=== PATIENT | male | born 1935 | race Caucasian/White ===

== ENCOUNTER 2019-11-08 18:01 | Inpatient (IN) | payer MEDICARE, OTHER ==
[~2019-11-08] VITALS: Ht 175.3 cm; Wt 86.2 kg
--- NOTE | 2019-11-08 18:10 | NUR ---
[id number], from home, generalized weakness x 5 days, no appetite to eat. Patient a/ox2-3, breathing even and unlabored, no sob noted, needs attended, kept comfortable, changed into gown, attached to the security monitor.
--- NOTE | 2019-11-08 18:38 | NUR ---
per patient, he lives alone, he has a sheet metal duct installer apprentice that comes 3x a week.
[2019-11-08 18:54] LABS: BASOPHILS % (AUTO) 0.4 % (0.0-2.0); HEMATOCRIT 44 % (39-51); HEMOGLOBIN 14.7 g/dL (13.5-17.5); LYMPHOCYTES # (AUTO) 0.5 /CMM (0.8-4.8); LYMPHOCYTES % (AUTO) 7.3 % (20.0-44.0); MEAN CORPUSCULAR HGB CONC 34 g/dl (31.0-36.0); MEAN CORPUSCULAR VOLUME 111 fL (80-96); MONOCYTES # (AUTO) 0.3 /CMM (0.1-1.30); MONOCYTES % (AUTO) 4.5 % (2.0-12.0); NEUTROPHILS # (AUTO) 5.6 /CMM (1.8-8.9); NEUTROPHILS % (AUTO) 87.8 % (43.0-81.0); PLATELET COUNT (AUTO) 180 /CMM (150-450); RED BLOOD CELL COUNT(AUTO) 3.97 MIL/uL (4.5-6.0); WHITE BLOOD COUNT (AUTO) 6.3 K/uL (4.3-11.0)
[2019-11-08] MEDS ORDERED: IV NS 0.9% 500 ML IV ONE (19:00)
--- NOTE | 2019-11-08 19:00 | NUR ---
unable to provide urine at this time, urinal given at bedside.
--- NOTE | 2019-11-08 19:05 | NUR ---
Boaz lee at bedside for cxr. Endorsed to Arslan CRAMER for arnulfo.
--- NOTE | 2019-11-08 19:20 | NUR ---
PT AAOX3, AMBULATORY WITH THE USE OF A WALKER. PLACED ON VISCOSITY INSPECTOR AND PULSE OX. VSS.
--- NOTE | 2019-11-08 19:24 | NUR ---
URINE SENT TO LAB
[2019-11-08 19:29] LABS: ALANINE AMINOTRANSFERASE 75 U/L (12-78); ALBUMIN 3.2 g/dL (3.4-5.0); ALKALINE PHOSPHATASE 128 U/L (46-116); ASPARTATE AMINOTRANSFERASE 115 U/L (15-37); B-TYPE NATRIURETIC PEPTIDE 407 PG/ML (0-125); BILIRUBIN,DIRECT 0.3 mg/dL (0.0-0.2); BILIRUBIN,TOTAL 1.2 mg/dL (0.2-1.0); CALCIUM, SERUM 8.8 mg/dL (8.5-10.1); CARBON DIOXIDE 18 mmol/L (21-32); CHLORIDE 95 mmol/L (98-107); CREATININE 0.7 mg/dL (0.6-1.3); POTASSIUM 5.9 mmol/L (3.5-5.1); SODIUM SERUM 131 mmol/L (136-145); TOTAL PROTEIN, SERUM 7.2 g/dL (6.4-8.2); UREA NITROGEN, BLOOD 11 mg/dL (7-18)
[2019-11-08 19:30] LABS: GLUCOSE 31 mg/dL (74-106)
[2019-11-08] MEDS ORDERED: DEXTROSE 50%-WATER 50 ML DISP.SYRIN ONE (19:34)
[2019-11-08 19:38] LABS: APPEARANCE,URINE Slightly Cloudy (CLEAR); BILIRUBIN,URINE SMALL (NEGATIVE); BLOOD, URINE Negative Ery/uL (NEGATIVE); COLOR,URINE Orange (YELLOW); KETONES,URINE 40 (NEGATIVE); LEUKOCYTE ESTERASE ,URINE Negative (NEGATIVE); NITRITE, URINE Negative (NEGATIVE); PH,URINE 5.5 (5.0-8.0); PROTEIN,URINE Trace mg/dl (NEGATIVE); UGLUCOSE Negative (NEGATIVE)
[2019-11-08 19:42] LABS: RBC,URINE 0-2 /HPF (0-2)
[2019-11-08 19:43] LABS: BACTERIA,URINE Rare /HPF (None Seen); CALCIUM OXALATE CRYSTALS,UR Many /HPF (None Seen); WBC,URINE 0-2 /HPF (0-3)
[2019-11-08 19:44] LABS: LYMPHOCYTES % (MANUAL) 10 % (16-48); MONOCYTES % (MANUAL) 2 % (0-11.0); NEUTROPHILS % (MANUAL) 88 (42-76)
[2019-11-08] MEDS ORDERED: LEVO112T2 PO (19:46)
[2019-11-08] MEDS ORDERED: GLIP5TAB13 PO (19:46)
[2019-11-08] MEDS ORDERED: AMLO5TAB9 PO (19:46)
[2019-11-08] MEDS ORDERED: LOSA100T31 PO (19:46)
[2019-11-08] MEDS ORDERED: SODIUM POLYSTYRENE SULFONATE 15 G/60 ML BOTTLE ONE (19:53)
[2019-11-08] MEDS ORDERED: SODIUM BICARBONATE SYR 50 MEQ/50 ML DISP.SYRIN ONE (19:53)
[2019-11-08] MEDS ORDERED: IV NS 0.9% 1,000 ML BAG IV ONE (20:00)
[2019-11-08] MEDS ORDERED: DEXTROSE 50%-WATER 50 ML DISP.SYRIN IV ONE (20:00)
[2019-11-08] MEDS ORDERED: SODIUM BICARBONATE SYR 50 MEQ/50 ML DISP.SYRIN IV ONE (20:00)
[2019-11-08] MEDS ORDERED: SODIUM POLYSTYRENE SULFONATE 15 G/60 ML BOTTLE PO ONE (20:00)
--- NOTE | 2019-11-08 20:04 | NUR ---
EPIC PAGED STACAI
--- NOTE | 2019-11-08 20:08 | NUR ---
MED LIST UDPATED.
[2019-11-08] MEDS ORDERED: MAG HYDROX/AL HYDROX/SIMETH 30 ML UDC PO PRN (20:30)
[2019-11-08] MEDS ORDERED: DEXTROSE 50%-WATER 50 ML DISP.SYRIN IV PRN (20:30)
[2019-11-08] MEDS ORDERED: Z GUARD REMEDY 2 OZ OINT TP PRN (20:30)
[2019-11-08] MEDS ORDERED: ONDANSETRON HCL/PF 4 MG/2 ML VIAL IVP PRN (20:30)
[2019-11-08] MEDS ORDERED: MAGNESIUM HYDROXIDE 30 ML UDC PO PRN (20:30)
--- NOTE | 2019-11-08 21:00 | NUR ---
SPOKE TO SON. UPDATED PLAN OF CARE.
--- NOTE | 2019-11-08 21:10 | NUR ---
REPORT GIVEN TO KHLOE CRAMER FOR ANURADHA
[2019-11-08 21:12] LABS: ABG BASE EXCESS -9.8 mmol/L; ABG OXYGEN SATURATION 96.4 % (92.0-98.5); ABG PCO2 28.3 mmHg (35.0-45.0); ABG PH 7.328 (7.350-7.450); ABG PO2 95.9 mmHg (75.0-100.0); AaDO2 19.9 mmHg; COHb 0.6 % (0.5-1.5); MetHb 0.3 % (0.0-1.5); O2Hb 95.5 % (94.0-97.0); SITE, ABG Right Radial; VENT MODE, BG Room Air
--- NOTE | 2019-11-08 21:22 | NUR ---
Pavan white in [facility] - 11/08/19 at 2123 by JOEY EMT AT BEDSIDE FOR EKG
--- NOTE | 2019-11-08 21:30 | NUR ---
BG 143 MD AWARE
--- NOTE | 2019-11-08 21:37 | NUR ---
PT TRANSPORTED PER [facility]
[2019-11-08 22:00] VITALS: BP 145/70
[2019-11-08 22:20] VITALS: BP 141/82
--- NOTE | 2019-11-08 22:40 | NUR ---
RN ADMITTING NOTES ADMITTED PATIENT, FROM ER, PATIENT CAN WALK SLOWLY WITH HIS WALKER, CHAIR, DENIES PAIN AT THIS TIME, BUT CLAIMS THAT HE HAS NOT BEEN EATING WITH POOR APPETITE FOR THE PAST 5 FIVE DAYS. HE CONSUMES 3-5 SHOTS OF MARTINI PER DAY AND 5 -6 CIGAR ANY BRAND/ DAY. NO SIGNS OF SOB NOTED AT THIS TIME, SATING 97% ON ROOM AIR, IV ACCESS INTACT AND PATENT, ALL NEEDS ANTICIPATED. ORIENTED TO UNIT AND THE USE OF CALL LIGHT. PATIENT CLAIMS THAT HE FELL COUPLE OF DAYS A AGO, AND HIT HIS LEFT SHOULDER ON THE FLOOR. NOTED WITH SMALL PINPOINT SCAB ON HIS LEFT SHOULDER, PHOTO TAKEN DURING INITIAL SKIN ASSESSMENT. NOTED WITH LARGE REGGIE ON HIS MID BACK, PHOTO TAKE AND SECURED IN PATIENTS' CHART. SAFETY MEASURES IN PLACE, ASPIRATION PRECAUTION EMPHASIZED, URINAL AND BEDSIDE COMMODE AT BEDSIDE, PATIENT KEEP ON INSISTING TO STAND AND WALK TO THE TOILET HAD 1 BM UPON ADMISSION. ALL NEEDS ATTENDED. SEEN BY DR. PALOMO. WILL CONTINUE TO MONITOR ACCORDINGLY.
[2019-11-08] MEDS: BLOOD SUGAR DIAGNOSTIC 1 EACH STRIP IN SCH (22:50)
[2019-11-08] MEDS: IV D5/ 0.9% NACL 1,000 ML IV SCH (23:41)
[2019-11-08] MEDS: ZOLPIDEM TARTRATE 5 MG TABLET PO PRN (23:48)
[2019-11-08 23:53] VITALS: BP 154/80
[2019-11-08] MEDS: INSULIN REGULAR, HUMAN 100 UNIT/ML 3 ML VIAL SQ PRN (23:53)
[2019-11-09] VITALS (7 sets, daily range): BP systolic 108–164; BP diastolic 70–95
--- NOTE | 2019-11-09 06:15 | NUR ---
RN NOTES ALL NEEDS ATTENDED AND MET, ABLE TO REST AND SLEPT AT INTERVALS, PATIENT REMOVED HIS IV ACCESS AT 05:30 STATES THAT HE CANNOT SLEEP WITH THE IV LINE ON, EXPLAINED THE BENIFITS AND RISKS OF NOT HAVING AN IV ACCESS, PATIENT REFUSED FOR IN RE INSERTION AT THIS TIME. WILL FOLLOW UP. KEEP CLEAN WARM DRY AND COMFORTABLE. WILL ENDORSE FOR CONTINUITY OF CARE.
[2019-11-09 06:33] LABS: ALBUMIN 2.5 g/dL (3.4-5.0); BILIRUBIN,DIRECT 0.2 mg/dL (0.0-0.2); BILIRUBIN,TOTAL 1.5 mg/dL (0.2-1.0); CALCIUM, SERUM 7.6 mg/dL (8.5-10.1); CREATININE 0.9 mg/dL (0.6-1.3); MAGNESIUM 1.3 mg/dL (1.8-2.4); PHOSPHORUS 2.8 mg/dL (2.5-4.9); POTASSIUM 4.2 mmol/L (3.5-5.1)
[2019-11-09] MEDS: BLOOD SUGAR DIAGNOSTIC 1 EACH STRIP IN SCH ×4 (07:18→21:33)
--- NOTE | 2019-11-09 07:19 | NUR ---
RN NOTES RE INSERTED A NEW PERIPHERAL IV LINE ON HIS LEFT HAND G#22, INTACT AND PATENT. ACCUCHECK DONE 152 MG/DL INSULIN COVERAGE NOT GIVE PATIENT WILL HAVE ABDOMINAL ULTRASOUND TODAY AT 0900 AM. ENDORSE TO AM NURSE, PATIENT IS RESTING COMFORTABLY AT THIS TIME.
[2019-11-09] MEDS: IV D5/ 0.9% NACL 1,000 ML IV SCH (07:22)
[2019-11-09] MEDS: INSULIN REGULAR, HUMAN 100 UNIT/ML 3 ML VIAL SQ PRN ×4 (07:26→22:01)
--- NOTE | 2019-11-09 07:46 | NUR ---
RN OPENING NOTE Patient is in bed, A/O x3-4, showing no signs of acute distress or SOB, stable on RA. Patient has no complaints of pain at this time. IV line in the left hand is clean and intact, flushing well. Bed is in lowest position, side rails x3 in upright position, call light is within reach, fall safety and aspiration precautions enforced. Will continue with plan of care.
[2019-11-09 09:00] LABS: BASOPHILS % (AUTO) 0.2 % (0.0-2.0); EOSINOPHILS % (AUTO) 0.2 % (0.0-6.0); HEMATOCRIT 37 % (39-51); HEMOGLOBIN 12.7 g/dL (13.5-17.5); LYMPHOCYTES # (AUTO) 1.2 /CMM (0.8-4.8); LYMPHOCYTES % (AUTO) 22.7 % (20.0-44.0); MEAN CORPUSCULAR HGB CONC 34 g/dl (31.0-36.0); MEAN CORPUSCULAR VOLUME 109 fL (80-96); MONOCYTES # (AUTO) 0.6 /CMM (0.1-1.30); MONOCYTES % (AUTO) 11.6 % (2.0-12.0); NEUTROPHILS # (AUTO) 3.4 /CMM (1.8-8.9); NEUTROPHILS % (AUTO) 65.3 % (43.0-81.0); PLATELET COUNT (AUTO) 165 /CMM (150-450); RED BLOOD CELL COUNT(AUTO) 3.42 MIL/uL (4.5-6.0); WHITE BLOOD COUNT (AUTO) 5.1 K/uL (4.3-11.0)
[2019-11-09] MEDS ORDERED: IV D5/ 0.9% NACL 1,000 ML IV PRN (09:00)
[2019-11-09] MEDS: LEVOTHYROXINE SODIUM 112 MCG TABLET PO SCH (09:29)
[2019-11-09] MEDS: THIAMINE HCL 100 MG TABLET PO SCH (09:29)
[2019-11-09] MEDS: PANTOPRAZOLE 40 MG TABLET.DR PO SCH (09:29)
[2019-11-09] MEDS: FOLIC ACID 1 MG TABLET PO SCH (09:29)
[2019-11-09] MEDS: MULTIVITAMINS,THERAGRAN 1 UDTAB TABLET PO SCH (09:29)
--- NOTE | 2019-11-09 12:08 | NUR ---
RN NOTE Non-admin insulin per sliding scale. BS 113.
[2019-11-09] MEDS: Magnesium 1GM/D5W 100ML PREMIX 100 ML IV SCH ×4 (13:02→16:44)
--- NOTE | 2019-11-09 16:42 | NUR ---
RN NOTE Patient presents with frequent urination and frequently wets bed. Patient is candidate for condom catheter. Ok per Dr. Walls.
--- NOTE | 2019-11-09 18:52 | NUR ---
RN CLOSING NOTE Patient is in bed, A/O x3-4, showing no signs of acute distress or SOB, stable on RA. IV line in the left hand is clean and intact, flushing well. Condom catheter noted with clear urine output. All patient needs met, all due medications given, patient kept clean and dry throughout shift. Bed is in lowest position, side rails x3 in upright position, call light is within reach, fall safety and aspiration precautions enforced. Will endorse to shift leader.
--- NOTE | 2019-11-09 19:30 | NUR ---
RN OPEN NOTES PATIENT IS LAYING IN BED. ON RA, NO SOB/ ACUTE RESPIRATORY DISTRESS NOTED. APPEARS COMFORTABLE, NO COMPLAINTS OF PAIN AT THE MOMENT. BED IS IN LOWEST LOCKED POSITION WITH SIDE RIALS UP, SEMI FOWLERS. CALL LIGHT IS WITHIN REACH, WILL CONTINUE TO MONITOR.
[2019-11-09] MEDS: ZOLPIDEM TARTRATE 5 MG TABLET PO PRN (23:26)
--- NOTE | 2019-11-10 06:21 | NUR ---
RN CLOSE NOTES PATIENT IS LAYING IN BED. A/O X4. ON RA, NO SOB/ ACUTE RESPIRATORY DISTRESS NOTED. APPEARS COMFORTABLE/ NO COMPLAINTS OF PAIN AT THE MOMENT. IV ON LEFT HAND #22G IS PATENT AND INTACT RUNNING D5NS @ 100MLS/HR. CONDOM CATH IN PLACE, 2000ML OUTPUT. BED IS IN LOWEST LOCKED POSITION WITH SIDE RAILS UP, SEMI FOWLERS. CALL LIGHT IS WITHIN REACH. WILL ENDORSE TO AM NURSE.
[2019-11-10] MEDS: BLOOD SUGAR DIAGNOSTIC 1 EACH STRIP IN SCH ×4 (06:49→21:05)
[2019-11-10 07:49] LABS: CARBON DIOXIDE 25 mmol/L (21-32); CHLORIDE 96 mmol/L (98-107); CREATININE 0.5 mg/dL (0.6-1.3); GLUCOSE 122 mg/dL (74-106); MAGNESIUM 1.8 mg/dL (1.8-2.4); PHOSPHORUS 2.3 mg/dL (2.5-4.9); POTASSIUM 3.1 mmol/L (3.5-5.1); SODIUM SERUM 130 mmol/L (136-145); UREA NITROGEN, BLOOD 6 mg/dL (7-18)
[2019-11-10 07:51] LABS: THYROID STIMULATING HORMONE 9.109 uIU/mL (0.358-3.74)
[2019-11-10 08:00] VITALS: BP 139/71
--- NOTE | 2019-11-10 08:00 | NUR ---
m/s pickup driver: initial assessment received pt in bed awake, a/ox3-4. hard of hearing. no c/o n/v or any discomfort. appetite good. instructed to call for assistance. will continue to monitor.
[2019-11-10] MEDS: THIAMINE HCL 100 MG TABLET PO SCH (08:35)
[2019-11-10] MEDS: MULTIVITAMINS,THERAGRAN 1 UDTAB TABLET PO SCH (08:35)
[2019-11-10] MEDS: FOLIC ACID 1 MG TABLET PO SCH (08:35)
[2019-11-10] MEDS: LEVOTHYROXINE SODIUM 112 MCG TABLET PO SCH (08:35)
[2019-11-10] MEDS: PANTOPRAZOLE 40 MG TABLET.DR PO SCH (08:35)
[2019-11-10 08:55] LABS: BASOPHILS % (AUTO) 0.1 % (0.0-2.0); EOSINOPHILS % (AUTO) 0.2 % (0.0-6.0); HEMATOCRIT 42 % (39-51); HEMOGLOBIN 14.1 g/dL (13.5-17.5); LYMPHOCYTES # (AUTO) 1.5 /CMM (0.8-4.8); LYMPHOCYTES % (AUTO) 30.5 % (20.0-44.0); MEAN CORPUSCULAR HGB CONC 34 g/dl (31.0-36.0); MEAN CORPUSCULAR VOLUME 108 fL (80-96); MONOCYTES # (AUTO) 0.6 /CMM (0.1-1.30); MONOCYTES % (AUTO) 11.9 % (2.0-12.0); NEUTROPHILS # (AUTO) 2.9 /CMM (1.8-8.9); NEUTROPHILS % (AUTO) 57.3 % (43.0-81.0); PLATELET COUNT (AUTO) 163 /CMM (150-450); RED BLOOD CELL COUNT(AUTO) 3.85 MIL/uL (4.5-6.0)
[2019-11-10] MEDS: POTASSIUM CHLORIDE 20 MEQ TAB.PRT.SR PO SCH ×2 (10:01→11:07)
--- NOTE | 2019-11-10 10:45 | NUR ---
tracey/carmen du: md visit seen and examined by dr. hanna at this time. social service consult per dr. hanna. Addendum: 11/10/19 at 1048 by MANJIT TURPIN LVN froy ruvalcaba) saw pt earlier this morning.
--- NOTE | 2019-11-10 11:00 | NUR ---
m/s fish conservationist: notes condom cath keeps dislodged. urinal provided. instructed to call for assistance.
--- NOTE | 2019-11-10 11:33 | NUR ---
Social service consult requested by MD for alcohol abuse. Per MD notes, pt is a 84-year-old male with history of CVA x2, generalized weakness, diabetes, hypertension, hypothyroidism, anxiety disorder, alcohol abuse presented to the emergency room complaining of weakness x4 to 5 days. Patient states his daily routine is to have a martini starting at 10 or 11 in the morning with intermittent naps and meals typically 3-5 drinks daily for a number of years and also takes ' a medication like Valium' 1-2 tabs a day. He has a helper that comes around 3 times a week and brings him groceries. Patient states he has had some abdominal discomfort over the past 2 weeks which is usually relieved by the martini but over the past 2 to 3 days he cannot keep any food down at all and today could not get out of bed. PRISON TEACHER conducted chart review and met with the pt bedside. PRISON TEACHER introduced self and purpose of the visit. Pt is alert and oriented x 4. Pt had his surgical mask on his forehead. Pt reports, he resides alone in an apartment located at [address] [place] [address] in [place]. Pt hair appeared disheveled. Pt repots he has a helper, Kenisha that comes three times a week and as needed. Kenisha assists the pt with housekeeping, grocery shopping and taking him to his doctor appointments. Pt is somewhat dependent for his ADLS and IADLs. Pt ambulates with a walker. Pt has an elevator in his building. Pt reports to drink up to three glasses of martini per day. Pt states, he discusses his drinking with his doctor who is aware of his drinking. Pt reports, he doesn't have a problem with drinking and has it under control. Pt receives SSI and pension. Pt is and has a son, Tejinder. 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 Pt denies any history of SI/HI. Pt denies suicidal and homicidal ideations at this time. Pt declined addiction resources. Pt reports, he is a loner and would like to go home once medically cleared for discharge. PRISON TEACHER provided active listening, supportive counseling and validation of feelings. Casing Operator is available for support as needed. PRISON TEACHER consulted with family preservation caseworker Jelly and was informed Dr. Walls has recommended SNF placement. APS to be filed if pt refuses SNF placement and pt is discharged home.
[2019-11-10] MEDS: INSULIN REGULAR, HUMAN 100 UNIT/ML 3 ML VIAL SQ PRN ×2 (11:44→17:27)
--- NOTE | 2019-11-10 11:45 | NUR ---
m/s staffing operations manager: notes bs [id number]. pt has good appetite. pt refused insulin coverage. dr. hanna notified and made aware re: blood sugar results for the past 2 days with order to d'c iv fluids. order read back and carried out and acknowledged.
--- NOTE | 2019-11-10 14:30 | NUR ---
m/s metal dealer: notes [id number] per pt's request.
[2019-11-10 16:00] VITALS: BP 138/92
[2019-11-10] MEDS ORDERED: K PHOS NEUTRAL 250 MG TABLET PO ONE (16:30)
--- NOTE | 2019-11-10 17:15 | NUR ---
m/s educator senior clinical: notes case management called and wants pt test for covid 19, pending approval from snf. informed case management that pt has a private caregiver at home and pt verbalize wanting to go home once clear. covid test ordered per case management. cn aware.
--- NOTE | 2019-11-10 17:50 | NUR ---
m/s safety spec: notes amilcar (son) notified and made aware re: plan of care. also transfer call to case management.
--- NOTE | 2019-11-10 19:15 | NUR ---
m/s hat brim and crown laminating operator: notes report given to dorian (katherine) for continuity of care.
--- NOTE | 2019-11-10 19:19 | NUR ---
MS RN NOTES PATIENT IN BED, AWAKE, ALERT AND ORIENTED X 3-4. BREATHING EVEN AND UNLABORED ON ROOM AIR. SHOWS NO SIGNS OF ACUTE RESPIRATORY DISTRESS. NO ACUTE PAIN. IV ON L HAND 22G ITS CLEAN DRY AND INTACT. SHOWS NO SIGNS OF INFILTRATION, NO REDNESS. SAFETY PRECAUTIONS IN PLACE. BED IN LOWEST POSITION, LOCKED, AND CALL LIGHT KEPT WITHIN REACH. WILL CONTINUE TO MONITOR.
[2019-11-10 19:30] VITALS: BP 126/68
[2019-11-10 20:00] VITALS: BP 126/68
[2019-11-10] MEDS: ZOLPIDEM TARTRATE 5 MG TABLET PO PRN (21:00)
--- NOTE | 2019-11-10 22:00 | NUR ---
MS RN NOTES PATIENT BG AT 2200 178, PT REFUSED COVERAGE. WILL CONTINUE TO MONITOR
[2019-11-11] MEDS: LORAZEPAM INJ 2 MG/ML VIAL IV PRN (04:43)
--- NOTE | 2019-11-11 06:30 | NUR ---
MS RN NOTES PATIENT REFUSED AM LAB DRAW. ASKED TO COME BACK LATER. WILL ENDORSE TO MORNING NURSE.
[2019-11-11] MEDS: BLOOD SUGAR DIAGNOSTIC 1 EACH STRIP IN SCH ×4 (06:32→22:34)
--- NOTE | 2019-11-11 06:33 | NUR ---
MS RN NOTES PATIENT IN BED, ASLEEP, ALERT AND ORIENTED X 2-3. BREATHING EVEN AND UNLABORED ON ROOM AIR. SHOWS NO SIGNS OF ACUTE RESPIRATORY DISTRESS. NO ACUTE PAIN. IV ON L HAND 22G ITS CLEAN DRY AND INTACT. SHOWS NO SIGNS OF INFILTRATION, NO REDNESS. ALL DUE MEDICATIONS GIVEN. SAFETY PRECAUTIONS IN PLACE. BED IN LOWEST POSITION, LOCKED, AND CALL LIGHT KEPT WITHIN REACH. WILL ENDORSE TO ONCOMING NURSE.
[2019-11-11] MEDS: LEVOTHYROXINE SODIUM 112 MCG TABLET PO SCH (07:30)
[2019-11-11] MEDS: PANTOPRAZOLE 40 MG TABLET.DR PO SCH (07:30)
--- NOTE | 2019-11-11 07:30 | NUR ---
MS/RN Opening note Patient received from awake overnight counselor. Confused and disoriented, believing that he is in his house and that we are withholding all his personal belongings from him. Attempted to reorient to surroundings. Vital signs recorded, all within normal range. Denies any pain or discomfort at this time. Refusing to have blood drawn, MD aware. Safety measures in place, call light within reach. Bed in low setting, side rails X3 in upright position, brakes locked. Will continue to monitor and ensure safety.
--- NOTE | 2019-11-11 07:34 | NUR ---
MS/RN S/B Dr Muhammad Seen by MD - patient for discharge planning today to rehab, awaiting placement acceptance.
[2019-11-11 07:56] VITALS: BP 146/81
[2019-11-11 08:25] LABS: CREATININE 0.6 mg/dL (0.6-1.3); MAGNESIUM 1.4 mg/dL (1.8-2.4); PHOSPHORUS 2.7 mg/dL (2.5-4.9)
[2019-11-11 08:26] VITALS: BP 146/81
[2019-11-11 08:36] LABS: THYROID STIMULATING HORMONE 11.758 uIU/mL (0.358-3.74)
--- NOTE | 2019-11-11 08:45 | NUR ---
MS/RN Refused medications Patient refusing to take any medications,stating that we are playing some sort of game with him and that he doesn't need medication, he just wants to get out of here. Explained the importance of taking all medications as ordered, especially those ordered for his thyroid, but still refuses. Patient requesting for phone to call his son. Will provide patient with phone.
[2019-11-11 08:51] LABS: POTASSIUM 2.7 mmol/L (3.5-5.1)
[2019-11-11] MEDS: FOLIC ACID 1 MG TABLET PO SCH (08:57)
[2019-11-11] MEDS: MULTIVITAMINS,THERAGRAN 1 UDTAB TABLET PO SCH (08:57)
[2019-11-11] MEDS: THIAMINE HCL 100 MG TABLET PO SCH (08:57)
--- NOTE | 2019-11-11 09:59 | NUR ---
MS/RN Labs Morning labs reviewed: -K+ 2.7
--- NOTE | 2019-11-11 10:10 | NUR ---
MS/RN Heplock removed Patient removed heplock, refusing to have new line reinserted. Very confused and agitated at this time. Refusing to stay in bed, legs consistently being thrown over side of bed, at risk of falling from bed. Patient wishing to speak with police or security as believes that he is being held against his will. Security called, will come to floor to try to calm patient.
--- NOTE | 2019-11-11 10:39 | NUR ---
MS/RN Room change Patient moved to room 320-2 to be with sitter to ensure safety. Continues to be confused, and requesting to speak with security, but only a white cyber security administrator as he believes that people of other color will be in on the current drug deal that he believes is happening here at the moment.
--- NOTE | 2019-11-11 11:15 | NUR ---
MS/RN Skin tear New skin tear noted to patient's left forearm. Wound care consult ordered, patient refusing for pictures or wound care at this time. Attempted to place sleeve to both arms to protect and to prevent patient from picking at wound, but became more agitated and combative. Will attempt at later time once patient calms down.
[2019-11-11] MEDS: Magnesium 1GM/D5W 100ML PREMIX 100 ML IV SCH ×4 (11:27→14:27)
--- NOTE | 2019-11-11 11:30 | NUR ---
MS/RN New orders New order by Dr Muhammad for seroquel 25mg PO X1 and psych eval. Face sheet faxed to [facility] [employer], Dr Echeverria consumer loan specialist today.
[2019-11-11] MEDS ORDERED: QUETIAPINE FUMARATE 25 MG TABLET PO ONE (12:30)
--- NOTE | 2019-11-11 13:07 | NUR ---
MS/RN Refusing medications Patient refusing both seroquel and new heplock insertion to receive magnesium IVPB. aware.
--- NOTE | 2019-11-11 13:16 | NUR ---
MS/RN S/B Dr Nichole Seen by Dr Nichole - urine to be collected and sent to lab for sodium clearance and osmolality.
--- NOTE | 2019-11-11 14:40 | NUR ---
MS/leather cartridge belt maker update Spoke to Tejinder (patient's son), pdated as to plan of care and to the fact that patient is more confused today. Son also spoke with Dr Nichole and adult protective caseworker. Requesting to start process on transferring patient to other acute facility.
--- NOTE | 2019-11-11 14:48 | NUR ---
MS/home health caregiver Patient continues to refuse wound care and for sleeves to be placed.
--- NOTE | 2019-11-11 15:35 | NUR ---
MS/RN K+ level Potassium level 2.7, Dr Muhammad aware. As patient refusing all oral and IV medications at this time no new orders. Once patient is calmer and cooperative, will place call for orders for replacement.
--- NOTE | 2019-11-11 15:42 | NUR ---
MS/RN Confusion Patient remains very confused and agitated, spitting at loan and credit manager, attempting to reach and grab for security guards name jenise. Skin tear on left forearm noted to be bleeding, refused dressing. Stating that he was going to wipe the blood on the montero, and bed so that there would be a trail for the police to find him after the drug deal has gone down. Addendum: 11/11/19 at 1545 by ERWIN WATKINS Patient also pulled out toe nail.
--- NOTE | 2019-11-11 16:41 | NUR ---
MS/RN Incident report Incident report made regarding skin tear to left forearm -Unique ID - [id number]
--- NOTE | 2019-11-11 17:00 | NUR ---
m/s supervisor counseling and guidance: notes have been sitting with the pt since this morning, pt increasingly loud and argumentative, refusing lunch and dinner, stating, i don't trust the food here, i think it's poison. been listening to pt, presenting reality, offering fluids, and toileting. pt intentionally urinated the bed x3, stating, i want to this, i can do whatever i want. also pt has been spitting all over the room and including staff, stating, i have cv 19, you will get it because i have it, you will catch it and bring to your house. furthermore, pt playing with his blood on his arm and putting it all over his bed, stating, this is the evidence that you want to hurt me. also pt has started throwing things what ever object he can grab like his linen, gown, and pillow; offered to gown and blanket to cover himself, but pt continue to refuse. overall, pt has been refusing help from staff, stating, i only want help with a white handbag stitcher, i think you all are murderer, drug dealer, and scumbag. awaiting for psych evaluation to see pt. will continue to monitor and offer assistance. Addendum: 11/11/19 at 1751 by MANJIT TURPIN LVN noted with discoloration on left lateral foot and refusing photo and refusing to assess site, pt will start kicking whenever staff come near.
--- NOTE | 2019-11-11 18:00 | NUR ---
m/s watch repairer apprentice: notes staff continue to offer assistance, but pt continue to refuse help and refusing care, medications (po/iv), vitals signs, meals, and toileting aid. whenever staff go near him, he starts reaching whatever he can grab on and throw things at you. needs attended. in no apparent distress noted. will continue to monitor.
--- NOTE | 2019-11-11 19:00 | NUR ---
m/s stogy maker: notes pt more calmer and request for 7 up drink, ordered 2 lemon nuiqsut per pt's request. pt doesn't remember what he did today. more alert now and request for his dinner and served. reality orientation provided prn. will endorse accordingly.
[2019-11-11 19:30] VITALS: BP 122/70
--- NOTE | 2019-11-11 19:30 | NUR ---
MS RN NOTES PATIENT IN BED, WITH SITTER, EATING DINNER. ALERT AND ORIENTED X 1-2, CONFUSED. BREATHING EVEN AND UNLABORED ON ROOM AIR. SHOWS NO SIGNS OF ACUTE RESPIRATORY DISTRESS, NO ACUTE PAIN. PT REFUSED IV. MD IS AWARE. PT APPEARS TO BE MORE CALM AT THE MOMENT. SAFETY PRECAUTIONS IN PLACE. BED IN LOWEST POSITION, LOCKED, AND CALL LIGHT KEPT WITHIN REACH. WILL CONTINUE TO MONITOR.
--- NOTE | 2019-11-11 22:00 | NUR ---
MS RN NOTES PATIENT REFUSING INSULIN BG 162. ALSO REFUSED IV INSERT AND PICTURES OF WOUNDS. WILL CONTINUE TO MONITOR.
--- NOTE | 2019-11-12 03:04 | NUR ---
MS RN NOTES REINSERTED IV ON R WRIST 22G. PT AGREED ON TAKING PICTURE OF WOUNDS BUT REFUSED TREATMENT FOR THE WOUNDS. WILL CONTINUE TO MONITOR.
[2019-11-12] MEDS: LORAZEPAM INJ 2 MG/ML VIAL IV PRN ×2 (03:05→22:24)
--- NOTE | 2019-11-12 03:05 | NUR ---
MS RN NOTES PATIENT REQUESTED ATIVAN. GIVEN PRN AT 0305. WILL CONTINUE TO MONITOR.
--- NOTE | 2019-11-12 05:51 | NUR ---
MS RN NOTES PATIENT REFUSED BLOOD LAW. ASKED TO COME BACK TO LATER TIME.
--- NOTE | 2019-11-12 06:31 | NUR ---
MS RN NOTES PATIENT IN BED, WITH SITTER, ALERT AND ORIENTED X 1-2, CONFUSED. BREATHING EVEN AND UNLABORED ON ROOM AIR. SHOWS NO SIGNS OF ACUTE RESPIRATORY DISTRESS, NO ACUTE PAIN. IV ON R WRIST 22G ITS CLEAN, DRY AND INTACT. SHOWS NO SIGNS OF INFILTRATION, NO REDNESS. ALL DUE MEDICATIONS GIVEN. SAFETY PRECAUTIONS IN PLACE. BED IN LOWEST POSITION, LOCKED, AND CALL LIGHT KEPT WITHIN REACH. WILL ENDORSE TO ONCOMING NURSE.
[2019-11-12] MEDS: BLOOD SUGAR DIAGNOSTIC 1 EACH STRIP IN SCH ×4 (06:44→22:08)
[2019-11-12 08:00] VITALS: BP 139/88
[2019-11-12] MEDS: MULTIVITAMINS,THERAGRAN 1 UDTAB TABLET PO SCH (08:14)
[2019-11-12] MEDS: THIAMINE HCL 100 MG TABLET PO SCH (08:14)
[2019-11-12] MEDS: PANTOPRAZOLE 40 MG TABLET.DR PO SCH (08:14)
[2019-11-12] MEDS: FOLIC ACID 1 MG TABLET PO SCH (08:14)
[2019-11-12] MEDS: LEVOTHYROXINE SODIUM 125 MCG TABLET PO SCH (08:15)
[2019-11-12 09:04] LABS: BASOPHILS % (AUTO) 0.2 % (0.0-2.0); EOSINOPHILS % (AUTO) 0.6 % (0.0-6.0); HEMATOCRIT 40 % (39-51); HEMOGLOBIN 13.8 g/dL (13.5-17.5); LYMPHOCYTES # (AUTO) 1.4 /CMM (0.8-4.8); LYMPHOCYTES % (AUTO) 23.3 % (20.0-44.0); MEAN CORPUSCULAR HGB CONC 34 g/dl (31.0-36.0); MEAN CORPUSCULAR VOLUME 107 fL (80-96); MONOCYTES # (AUTO) 0.6 /CMM (0.1-1.30); MONOCYTES % (AUTO) 9.7 % (2.0-12.0); NEUTROPHILS % (AUTO) 66.2 % (43.0-81.0); PLATELET COUNT (AUTO) 152 /CMM (150-450); RED BLOOD CELL COUNT(AUTO) 3.76 MIL/uL (4.5-6.0); WHITE BLOOD COUNT (AUTO) 6.1 K/uL (4.3-11.0)
[2019-11-12 09:21] LABS: CALCIUM, SERUM 8.1 mg/dL (8.5-10.1); CREATININE 0.9 mg/dL (0.6-1.3); MAGNESIUM 1.4 mg/dL (1.8-2.4); POTASSIUM 3.1 mmol/L (3.5-5.1)
--- NOTE | 2019-11-12 09:53 | NUR ---
WOUND CARE CONSULT: PT PRESENTS WITH LARGE PURPLE DISCOLORED AREA TO BACK WHICH PT STATES IS A BIRTHMARK, WELL BRUISING TO LEFT LATERAL FOOT AND TO RT DORSAL FOOT, PRESENT ON ADMISSION. PT NOTED TO HAVE SKIN TEARS TO LEFT ARM. BROKEN NAIL NOTED TO RT GREAT TOE, NO DRAINAGE OR TENDERNESS NOTED. SOME LONG TOENAILS NOTED BUT PT REFUSES DPM CONSULT. PT STATES WILL SEE HIS PMD AND WILL HAVE NAIL CARE AFTER DISCHARGE. PT IS CONTINENT AT THIS TIME. PT NEEDS HELP WITH TURNING/REPOSITIONING IN BED. CURRENT ERLINDA SCORE IS 13. DISCUSSED SKIN PROTECTION WITH NURSING STAFF. WILL SEE PRN. AGUILERA IN AGREEMENT WITH PLAN OF CARE. Addendum: 11/12/19 at 0958 by CATHI ROD WNDNU Amended: Links added.
[2019-11-12] MEDS ORDERED: QUETIAPINE FUMARATE 25 MG TABLET PO PRN (10:00)
[2019-11-12] MEDS: POTASSIUM CHLORIDE 20 MEQ TAB.PRT.SR PO SCH ×2 (11:07→12:50)
[2019-11-12] MEDS: Magnesium 1GM/D5W 100ML PREMIX 100 ML IV SCH ×2 (11:12→12:50)
--- NOTE | 2019-11-12 11:30 | NUR ---
dr. dior spoke to pt. on the phone.
--- NOTE | 2019-11-12 12:30 | NUR ---
spoke to son several times on the phone.
[2019-11-12] MEDS: INSULIN REGULAR, HUMAN 100 UNIT/ML 3 ML VIAL SQ PRN ×3 (12:44→22:08)
--- NOTE | 2019-11-12 13:17 | NUR ---
COVID #19 OROPHARYNGEAL SWAB DONE AND TAKEN TO LAB.
--- NOTE | 2019-11-12 14:30 | NUR ---
MG AND POTASSIUM REPLACEMENT GIVEN.
--- NOTE | 2019-11-12 15:29 | NUR ---
CLOTHES BROUGHT IN AND ADDED TO BELONGING LIST.
--- NOTE | 2019-11-12 15:49 | NUR ---
received pt. this am,cooperative,but restless at times.
[2019-11-12 16:00] VITALS: BP 118/80
[2019-11-12 19:28] VITALS: BP 118/80
--- NOTE | 2019-11-12 19:35 | NUR ---
MS RN OPENING NOTES RECEIVED PATIENT FROM MORNING SHIFT, ALERT AND ORIENTED X 2-3 FORGETFUL. VERBALLY RESPONSIVE AND ABLE TO FOLLOW DIRECTIONS. BREATHING REGULAR AND UNLABORED ON ROOM AIR. RIGHT WRIST G22 IV LINE INTACT AND PATENT, FLUSHING WELL WITH NO BLEEDING OR S/S OF INFILTRATION NOTED. DENIES SUICIDAL IDEATION OR PAIN/DISCOMFORT AT THIS TIME. BED LOW AND LOCKED ON SEMI FOWLERS POSITION. CALL LIGHT IN REACH. WILL CONTINUE TO MONITOR.
[2019-11-12 20:00] VITALS: BP 141/80
--- NOTE | 2019-11-12 22:10 | NUR ---
MS RN NOTES BS 174mg/dl, 3UNITS REGULAR INSULIN GIVEN SQ. SNACKS PROVIDED ON BEDSIDE. ASSISTED ON FEEDING. WILL CONTINUE TO MONITOR.
--- NOTE | 2019-11-12 22:30 | NUR ---
MS RN NOTES VERBALIZED FEELING ANXIOUS, ATIVAN 1MG GIVEN VIA IV PUSH. NON-PHARMACOLOGICAL INTERVENTIONS PROVIDED. WILL CONTINUE TO MONITOR.
[2019-11-12] MEDS: ACETAMINOPHEN 325 MG TABLET PO PRN (22:32)
[2019-11-13 00:25] LABS: OSMOLALITY,URINE 363 mOS/kg (340-1090)
[2019-11-13 00:34] LABS: URINE SODIUM, RANDOM 45 mmol/l (40-220)
[2019-11-13] MEDS: ZOLPIDEM TARTRATE 5 MG TABLET PO PRN ×2 (01:39→23:10)
--- NOTE | 2019-11-13 01:45 | NUR ---
MS RN NOTES COMPLAINED OF INABILITY TO STAY ASLEEP, AMBIEN 5MG GIVEN BY MOUTH. NON-PHARMACOLOGICAL INTERVENTIONS PROVIDED. WILL CONTINUE TO MONITOR.
[2019-11-13] MEDS: LORAZEPAM INJ 2 MG/ML VIAL IV PRN (04:37)
--- NOTE | 2019-11-13 06:30 | NUR ---
MS RN CLOSING NOTES PATIENT IN BED, ALERT AND ORIENTED X 2-3 FORGETFUL. AFEBRILE WITH NO S/S OF DISTRESS OBSERVED. RIGHT WRIST G22 IV LINE PATENT AND FLUSHING WELL. NO COMPLAINTS OF PAIN/DISCOMFORT REPORTED AT THIS TIME. BS 120mg/dl, NO INSULIN COVERAGE NEEDED. SNACKS PROVIDED ON BEDSIDE. BED LOW AND LOCKED ON SEMI FOWLERS POSITION. CALL LIGHT IN REACH. WILL ENDORSE TO MORNING SHIFT FOR ANURADHA.
[2019-11-13 07:26] LABS: CALCIUM, SERUM 8.3 mg/dL (8.5-10.1); CREATININE 0.7 mg/dL (0.6-1.3); MAGNESIUM 1.7 mg/dL (1.8-2.4); POTASSIUM 4.1 mmol/L (3.5-5.1)
[2019-11-13] MEDS: BLOOD SUGAR DIAGNOSTIC 1 EACH STRIP IN SCH ×4 (07:55→23:09)
[2019-11-13] MEDS: LEVOTHYROXINE SODIUM 125 MCG TABLET PO SCH (07:56)
[2019-11-13] MEDS: INSULIN REGULAR, HUMAN 100 UNIT/ML 3 ML VIAL SQ PRN ×3 (07:56→17:01)
[2019-11-13] MEDS: PANTOPRAZOLE 40 MG TABLET.DR PO SCH (07:56)
[2019-11-13 08:00] VITALS: BP 139/76
[2019-11-13] MEDS: MULTIVITAMINS,THERAGRAN 1 UDTAB TABLET PO SCH (08:31)
[2019-11-13] MEDS: THIAMINE HCL 100 MG TABLET PO SCH (08:31)
[2019-11-13] MEDS: FOLIC ACID 1 MG TABLET PO SCH (08:31)
[2019-11-13] MEDS: Magnesium 1GM/D5W 100ML PREMIX 100 ML IV SCH ×2 (08:45→10:13)
[2019-11-13 10:42] LABS: BASOPHILS % (AUTO) 0.1 % (0.0-2.0); EOSINOPHILS % (AUTO) 0.9 % (0.0-6.0); HEMATOCRIT 38 % (39-51); HEMOGLOBIN 12.9 g/dL (13.5-17.5); LYMPHOCYTES % (AUTO) 19.1 % (20.0-44.0); MEAN CORPUSCULAR HGB CONC 34 g/dl (31.0-36.0); MEAN CORPUSCULAR VOLUME 108 fL (80-96); MONOCYTES # (AUTO) 0.6 /CMM (0.1-1.30); MONOCYTES % (AUTO) 11.5 % (2.0-12.0); NEUTROPHILS # (AUTO) 3.7 /CMM (1.8-8.9); NEUTROPHILS % (AUTO) 68.4 % (43.0-81.0); PLATELET COUNT (AUTO) 155 /CMM (150-450); RED BLOOD CELL COUNT(AUTO) 3.47 MIL/uL (4.5-6.0); WHITE BLOOD COUNT (AUTO) 5.4 K/uL (4.3-11.0)
[2019-11-13 11:12] LABS: EOSINOPHILS % (MANUAL) 1 % (0-4); LYMPHOCYTES % (MANUAL) 18 % (16-48); MONOCYTES % (MANUAL) 10 % (0-11.0); NEUTROPHILS % (MANUAL) 71 (42-76)
--- NOTE | 2019-11-13 14:30 | NUR ---
MS RN NOTES OBSERVED PATIENT DISROBING SELF DESPITE OF EXPLANATIONS GIVEN, PATIENT CONTINUES TO DISROBE SELF.
[2019-11-13 16:00] VITALS: BP 168/61
--- NOTE | 2019-11-13 17:03 | NUR ---
MS RN NOTES PATIENT PULLED OUT IV ACCESS.
[2019-11-13] MEDS: ACETAMINOPHEN 325 MG TABLET PO PRN (17:05)
--- NOTE | 2019-11-13 18:50 | NUR ---
MS RN NOTES PATIENT RESTING COMFORTABLY IN BED. ALERT AND ORIENTED X2. NO SON. DENIES ANY C/O PAIN NOR DISCOMFORT AT THIS TIME. AWAITING FOR COVID TEST, STILL PENDING. BED IN LOWEST POSITION ,LOCKED. BED ALARM ON. CALL LIGHT WITHIN REACH. IN NO APPARENT DISTRESS.
[2019-11-14] MEDS: ACETAMINOPHEN 325 MG TABLET PO PRN (01:03)
[2019-11-14] MEDS: LORAZEPAM INJ 2 MG/ML VIAL IV PRN ×2 (03:42→12:13)
[2019-11-14 06:53] LABS: CALCIUM, SERUM 8.3 mg/dL (8.5-10.1); CREATININE 0.6 mg/dL (0.6-1.3); MAGNESIUM 1.9 mg/dL (1.8-2.4); POTASSIUM 3.5 mmol/L (3.5-5.1)
[2019-11-14 06:54] LABS: BASOPHILS % (AUTO) 0.3 % (0.0-2.0); EOSINOPHILS % (AUTO) 1.3 % (0.0-6.0); HEMATOCRIT 40 % (39-51); HEMOGLOBIN 13.6 g/dL (13.5-17.5); LYMPHOCYTES # (AUTO) 1.4 /CMM (0.8-4.8); MEAN CORPUSCULAR HGB CONC 34 g/dl (31.0-36.0); MEAN CORPUSCULAR VOLUME 108 fL (80-96); MONOCYTES # (AUTO) 0.6 /CMM (0.1-1.30); NEUTROPHILS # (AUTO) 2.8 /CMM (1.8-8.9); NEUTROPHILS % (AUTO) 57.4 % (43.0-81.0); PLATELET COUNT (AUTO) 166 /CMM (150-450); RED BLOOD CELL COUNT(AUTO) 3.68 MIL/uL (4.5-6.0); WHITE BLOOD COUNT (AUTO) 4.9 K/uL (4.3-11.0)
[2019-11-14] MEDS: BLOOD SUGAR DIAGNOSTIC 1 EACH STRIP IN SCH ×2 (07:29→11:42)
--- NOTE | 2019-11-14 07:29 | NUR ---
REFUSED AM INSULIN COVERAGE.
[2019-11-14] MEDS: LEVOTHYROXINE SODIUM 125 MCG TABLET PO SCH (07:54)
[2019-11-14] MEDS: PANTOPRAZOLE 40 MG TABLET.DR PO SCH (07:54)
[2019-11-14 08:00] VITALS: BP 142/86
--- NOTE | 2019-11-14 08:15 | NUR ---
MS RN NOTES SPOKE TO PATIENT, PATIENT AGREES TO GO TO [facility] AND IF HE DOESN'T IT LIKE IT THERE AND WANTS TO GO HOME, PATIENT STATES HE WILL LEAVE, BUT HE WILL GIVE IT A TRY FIRST. CALLED AND INFORMED SON OF PATIENT'S DECISION.
[2019-11-14] MEDS ORDERED: QUET25TA PO (08:19)
[2019-11-14] MEDS: FOLIC ACID 1 MG TABLET PO SCH (08:21)
[2019-11-14] MEDS: MULTIVITAMINS,THERAGRAN 1 UDTAB TABLET PO SCH (08:21)
[2019-11-14] MEDS: THIAMINE HCL 100 MG TABLET PO SCH (08:21)
--- NOTE | 2019-11-14 11:40 | NUR ---
MS RN NOTES BS 214MG/DL PATIENT REFUSED INSULIN.
[2019-11-14] MEDS: INSULIN REGULAR, HUMAN 100 UNIT/ML 3 ML VIAL SQ PRN (11:43)
--- NOTE | 2019-11-14 12:00 | NUR ---
MS RN NOTES PATIENT FOR DISCHARGE, CALL [facility] AND SPOKE TO SHOAIB LOFTON. REPORT GIVEN TO KIRSTY AND INFORMED RN PATIENT WILL GET PICKED UP AT 1400.
--- NOTE | 2019-11-14 14:30 | NUR ---
MS RN NOTES PATIENT PICKED UP BY [facility] ACCOMPANIED BY 2 EMT FOR DISCHARGE, GOING TO [facility]. DISCHARGE INSTRUCTIONS, EDUCATION AND REPORT GIVEN TO PATIENT AND KIRSTY CLARK RN VIA PHONE. DISCHARGE PACKET GIVEN TO EMT ALONG WITH PATIENT'S BELONGINGS. ALL BELONGINGS ACCOUNTED FOR. IV ACCESS REMOVED WITH CATHETER TIP INTACT. WOUND CARE DONE TO LEFT FOREARM GERALDINE WELL. PATIENT DENIES ANY C/O PAIN NOR DISCOMFORT. NO S/S OF RESPIRATORY DISTRESS. NO S/S OF HYPO/HYPERGLYCEMIA. PATIENT LEFT IN STABLE CONDITION VIA GURNEY ACCOMPANIED BY 2 EMT. SON ANGELA MADE AWARE. .
== END 2019-11-14 14:28 | DRG 637 ==
LOC: ER 18:03 → EDSEX 18:03 → TELE 20:54 → MED 11-09 12:02
PROVIDERS: ADMIT Internal Medicine; ATTEND Family Medicine
DX: E11.649 Type 2 diabetes mellitus with hypoglycemia without coma (principal); E43 Unspecified severe protein-calorie malnutrition; F03.91 Unspecified dementia, unspecified severity, with behavioral disturbance; E87.1 Hypo-osmolality and hyponatremia; E87.2 Acidosis; E87.6 Hypokalemia; E87.5 Hyperkalemia; E03.9 Hypothyroidism, unspecified; F39 Unspecified mood [affective] disorder; E86.1 Hypovolemia; R79.89 Other specified abnormal findings of blood chemistry; K70.9 Alcoholic liver disease, unspecified; K70.10 Alcoholic hepatitis without ascites; I10 Essential (primary) hypertension; Z86.73 Personal history of transient ischemic attack (TIA), and cerebral infarction without residual deficits; R53.1 Weakness; E88.09 Other disorders of plasma-protein metabolism, not elsewhere classified; Z68.28 Body mass index [BMI] 28.0-28.9, adult; E83.42 Hypomagnesemia; T38.3X5A Adverse effect of insulin and oral hypoglycemic [antidiabetic] drugs, initial encounter; Y92.89 Other specified places as the place of occurrence of the external cause; K76.0 Fatty (change of) liver, not elsewhere classified; F10.10 Alcohol abuse, uncomplicated; F41.9 Anxiety disorder, unspecified; K80.20 Calculus of gallbladder without cholecystitis without obstruction
CPT/HCPCS: 36415; 36600; 71045-TC; 76700-TC; 80048-TC; 80076-TC; 81000-TC; 82803-TC; 82962-TC; 83605-TC; 83735-TC; 83880; 83935-TC; 84100-TC; 84300-TC; 84439-TC; 84443-TC; 84481; 84484-TC; 84550-TC; 85025-TC; 85730-TC; 87040-TC; 87081-TC; 87086-TC; 97110-TC; 97116-TC; 97530-TC; A4349; A6403; G0378; J1815; J2060; J3475; J3490; J7030; J7040; J7042; U0003-CS